=== PATIENT | female | born 1955 | race Caucasian/White ===

== ENCOUNTER → 2018-12-28 | Outpatient (CLI) | payer OTHER | LOC: M.CT 09:07 | DX: Z13.6 Encounter for screening for cardiovascular disorders (principal) ==

== ENCOUNTER → 2019-03-28 | Outpatient (CLI) | payer MEDICARE, OTHER | LOC: M.RAD 10:13 | DX: J40 Bronchitis, not specified as acute or chronic (principal) ==

== ENCOUNTER → 2021-04-10 | Outpatient (CLI) | payer MEDICARE, OTHER | LOC: M.RAD 10:01 | PROVIDERS: ATTEND Internal Medicine Rheumatology | DX: M85.88 Other specified disorders of bone density and structure, other site (principal); M81.0 Age-related osteoporosis without current pathological fracture ==